=== PATIENT | female | born 1975 | race Caucasian/White ===

== ENCOUNTER 2024-05-30 15:31 | Emergency (ER) | payer BC, OTHER ==
[2024-05-30] MEDS ORDERED: Acetaminophen 325 MG TAB ONE (17:00)
== END 2024-05-30 17:53 | disposition home or self-care (01) ==
LOC: CSHERS 15:31
DX: S16.1XXA Strain of muscle, fascia and tendon at neck level, initial encounter (principal); I10 Essential (primary) hypertension; E11.9 Type 2 diabetes mellitus without complications; V89.2XXA Person injured in unspecified motor-vehicle accident, traffic, initial encounter
CPT/HCPCS: 71045; 72125